=== PATIENT | male | born 1935 | race Caucasian/White ===

== ENCOUNTER 2019-11-06 05:32 | Outpatient (CLI) | payer MEDICARE, OTHER ==
[2019-11-06 16:35] LABS: Mean Corpuscular HGB CONC 31.9 g/dL (32.0-36.0); Mean Corpuscular Hemoglobin 26.9 pg (27.0-31.0); Mean Corpuscular Volume 84.3 fL (78.0-98.0); Mean Platelet Volume 8.6 fL (7.4-10.4); Platelet Count 201 thou/uL (130-400); RBC Distribution Width 15.6 % (11.5-14.5); Red Blood Cell (RBC) Count 4.08 mill/uL (4.70-6.10); White Blood Cell (WBC) Count 4.1 thou/uL (4.8-10.8)
[2019-11-06 16:55] LABS: Anion Gap 16 mmol/L (10-20); BUN (Urea Nitrogen) 22 mg/dL (8.4-25.7); Calc. Creatinine Clearance 0 mL/min (70-130); Calcium 8.5 mg/dL (7.8-10.44); Carbon Dioxide 21 mmol/L (23-31); Chloride 104 mmol/L (98-107); Estimated GFR-MDRD 54; Glucose 150 mg/dL (83-110); Potassium 4.5 mmol/L (3.5-5.1); Sodium 136 mmol/L (136-145)
[2019-11-07 14:42] LABS: SARS-CoV-2 MS2 Positive; SARS-CoV-2 N Gene Positive; SARS-CoV-2 S Gene Positive; SARS-CoV-2 by NAA DETECTED (NotDetected); SARS-CoV-2 orf1ab Positive
== END 2019-11-06 05:33 | disposition home or self-care (01) ==
LOC: LABBT 05:32
PROVIDERS: ATTEND Thoracic Surgery (Cardiothoracic Vascular Surgery)
DX: U07.1 COVID-19 (principal); Z01.812 Encounter for preprocedural laboratory examination; I25.10 Atherosclerotic heart disease of native coronary artery without angina pectoris
CPT/HCPCS: 80048; 85027; U0003; 87635

== ENCOUNTER 2019-12-25 15:35 | Inpatient (IN) | payer MEDICARE, OTHER ==
[2019-12-25 17:16] LABS: Troponin I 0.145 ng/mL (< 0.028)
[2019-12-25 17:27] LABS: Lactic Acid 0.8 mmol/L (0.5-2.2)
[2019-12-25 17:41] LABS: SARS-CoV-2 NAA Rapid Test Not Detected (NotDetected)
[2019-12-25] MEDS ORDERED: Dextrose 50% Abboject 50 ML SYRINGE SLOW IVP PRN (18:01)
[2019-12-25] MEDS ORDERED: Dextrose 5% in Water 1,000 ML IV PRN (18:01)
[2019-12-25] MEDS ORDERED: HumaLOG 300 UNITS/3 ML VIAL SC PRN (18:01)
[2019-12-25 20:08] VITALS: BMI 25.7
[2019-12-25] MEDS ORDERED: traMADol HCl 50 MG TAB PO PRN (20:41)
[2019-12-25] MEDS: Piperacillin/Tazobactam 4.5 GM in Sodium Chloride 0.9% 100 ML IVPB SCH (20:49)
[2019-12-25] MEDS: Sodium Chloride 0.9% 1,000 ML IV SCH (20:50)
[2019-12-25] MEDS ORDERED: Magnesium 2 GM/50 ML 2 GM in Premix Bag 1 BAG IVPB SCH (21:00)
[2019-12-25] MEDS: Rosuvastatin 10 MG TAB PO SCH (21:44)
[2019-12-25] MEDS: Finasteride 5 MG TAB PO SCH (21:45)
[2019-12-25] MEDS: Apixaban 5 MG TAB PO SCH (21:45)
[2019-12-25] MEDS: Propranolol HCl 20 MG TAB PO SCH (21:45)
--- NOTE | 2019-12-26 00:08 | PDOC.HHP ---
Hospitalist HPI - History of Present Illness Generalized weakness History of Present Illness: This is an 84-year-old male patient with a history of diabetes mellitus, hypothyroidism coronary artery disease status post CABG on 11/17/2019, also had a recent fall. He presents with generalized weakness this morning leading him to call EMS. He was sent to [facility] where he was assessed and noted to h ave possible sepsis with fever of 103.7. No obvious source has however been identified. He denied any urinary symptoms of dysuria frequency however his urinalysis from [place] was suggestive of UTI. Urine WBCs were however the slightly elevated between 7 and 10. He denied any chest pain cough or shortness of breath. Denied any diarrhea. Labs showed lactate of 0.8, troponin 0 0.145, slightly elevated from 0.118 at the outside facility. He received vancomycin and Zosyn and blood cultures as well as urine culture was taken. Of note after his recent discharge on 12/15/2019 post CABG he went for rehab. 3 days ago at the rehab facility he stumbled and fell and injured his face. He had a CT scan of his face head and neck which revealed no acute processes. CT scan of his C-spine revealed degenerative changes with mild and moderate for a number of stenosis at various levels. He has been wearing a collar ever since. He does not note any significant weakness in his upper or lower limbs. He however complains of worsening soreness of his neck. Although he does appear to have a history of A. 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 Hospitalist ROS - Review of Systems Constitutional: reports: fever, chills, weakness, malaise. denies: sweats Respiratory: denies: cough, shortness of breath, hemoptysis, SOB with excertion Gastrointestinal: denies: nausea, vomiting, abdominal pain, diarrhea, constipati on Musculoskeletal: reports: neck pain, shoulder pain Neurological: reports: weakness - Medication Medications: Active Medications Generic Name Dose Route Start Last Admin Trade Name Freq PRN Reason Stop Dose Admin Apixaban 5 mg 12/25/19 21:00 12/25/19 21:45 Apixaban 5 Mg Tab PO 5 mg BID GIULIA Administration Finasteride 5 mg 12/25/19 21:00 12/25/19 21:45 Finasteride 5 Mg Tab PO 5 mg BID GIULIA Administration Sodium Chloride 1,000 mls @ 75 mls/hr 12/25/19 18:00 12/25/19 20:50 Normal Saline 0.9% IV 1,000 mls .[id number] GIULIA Administration Piperacillin Sod/Tazobactam 100 mls @ 200 mls/hr 12/25/19 22:00 12/25/19 20:49 Sod 4.5 gm/ Sodium Chloride IVPB 100 mls Q8HR GIULIA Administration Propranolol HCl 20 mg 12/25/19 21:00 12/25/19 21:45 Propranolol Hcl 20 Mg Tab PO 20 mg BID GIULIA Administration Rosuvastatin Calcium 10 mg 12/25/19 21:00 12/25/19 21:44 Rosuvastatin 10 Mg Tab PO 10 mg BID GIULIA Administration Allergies: no known drug allergies Hospitalist History - Past Medical History Cardiac: reports: CAD Endocrine: reports: Diabetes - Exam General Appearance: awake alert Eye: PERRL, anicteric sclera ENT - other findings: Facial bruises Neck - other findings: Neck movement is restricted, kept in collar Heart - other findings: S1-S2 present and normal. No murmurs gallops or rubs. Sternotomy clean Respiratory - other findings: Entry adequate bilaterally Gastrointestinal - other findings: Soft, nontender, nondistended. Bowel sounds present. Neurological: cranial nerve grossly intact, no focal deficits Neurological - other findings: Significant bilateral arm tremors Psychiatric: A&O x 3 Hospitalist Results - Labs Result Diagrams: 12/26/19 04:21 12/26/19 04:21 Lab results: Lactic Acid 0.8 mmol/L (0.5-2.2) 12/25/19 16:20 Troponin I 0.145 ng/mL (< 0.028) H 12/25/19 16:20 Hospitalist H&P A/P - Plan Plan: This is an 84-year-old male patient with a history of diabetes mellitus, hypothyroidism, coronary disease status post recent CABG and also recent fall who presents with generalized weakness and fever. Sepsis Unclear source however had tachycardia above 90 and fever Urinalysis not impressive for likely source. Has superficial wounds on his face however unlikely. continue on vanc and zosyn for now follow up on cultures consider ID imput in am if necessary -Neck pain Secondary to fall Recent CT not revealing of acute process Will consult neurosurgery for reevaluation giving persistent neck pain and restricted movement -CAD s/p cabg continue asa, statin also on apixiban. will start for now cardiology to revie in am DM on correctiona insllin VTE-coninue apixiban Code status-full code
[2019-12-26] MEDS: Vancomycin HCl 750 MG in Sodium Chloride 0.9% 250 ML 250 ML IVPB SCH ×2 (03:19→15:55)
[2019-12-26] MEDS: Piperacillin/Tazobactam 4.5 GM in Sodium Chloride 0.9% 100 ML IVPB SCH ×2 (05:09→15:55)
[2019-12-26 05:29] LABS: #Eosinphils 0.4 thou/uL (0.0-0.7); #Lymphocytes 0.7 thou/uL (1.20-3.40); #Monocytes 0.6 thou/uL (0.11-0.59); #Neutrophils 6.4 thou/uL (1.40-6.50); %Basophils 0.4 % (0.0-1.0); %Eosinophils 4.5 % (0.0-10.0); %Lymphocytes 8.9 % (21.0-51.0); %Neutrophils 79.2 % (42.0-75.0); Hemoglobin 8.3 g/dL (14.0-18.0); Mean Corpuscular HGB CONC 31.8 g/dL (32.0-36.0); Mean Corpuscular Hemoglobin 27.4 pg (27.0-31.0); Mean Corpuscular Volume 86.2 fL (78.0-98.0); Mean Platelet Volume 7.2 fL (7.4-10.4); Platelet Count 250 thou/uL (130-400); Red Blood Cell (RBC) Count 3.02 mill/uL (4.70-6.10)
[2019-12-26 05:41] LABS: Anion Gap 16 mmol/L (10-20); BUN (Urea Nitrogen) 16 mg/dL (8.4-25.7); Calc. Creatinine Clearance 74 mL/min (70-130); Carbon Dioxide 20 mmol/L (23-31); Chloride 104 mmol/L (98-107); Estimated GFR-MDRD 83; Glucose 94 mg/dL (83-110); Sodium 136 mmol/L (136-145)
[2019-12-26] MEDS ORDERED: Levothyroxine Sodium 75 MCG TAB PO SCH (06:00)
[2019-12-26] MEDS: Sodium Chloride 0.9% 1,000 ML IV SCH (08:40)
[2019-12-26] MEDS: Propranolol HCl 20 MG TAB PO SCH (08:40)
[2019-12-26] MEDS: Rosuvastatin 10 MG TAB PO SCH (08:40)
[2019-12-26] MEDS: Apixaban 5 MG TAB PO SCH (08:40)
[2019-12-26] MEDS: Finasteride 5 MG TAB PO SCH (08:40)
[2019-12-26] MEDS ORDERED: Aspirin 81 mg Enteric Coated Tablet PO SCH (09:00)
[2019-12-26] MEDS ORDERED: Tamsulosin HCl 0.4 MG CAP PO SCH (09:00)
[2019-12-26] MEDS ORDERED: Acetaminophen 325 MG TAB PO PRN (10:44)
--- NOTE | 2019-12-26 11:06 | PDOC.HOSPP ---
- Subjective Encounter Date: 12/26/19 Encounter Time: 10:40 Subjective: f/u for generalized weakness, febrile episode and concern for sepsis of unclear source tx with Vanc/Zosyn. s/p recent CABG in 11/25 receiving inpt rehab with recent fall and facial contusions. - Objective Vital Signs & Weight: Vital Signs (12 hours) Temp Pulse Resp BP BP Pulse Ox 12/26/19 08:00 94 14 150/69 H 93 L 12/26/19 04:00 98.5 F 84 22 H 155/69 H 93 L Weight Weight 179 lb I&O: 12/25/19 12/26/19 12/27/19 06:59 06:59 06:59 Intake Total 1830 Output Total 1400 Balance 430 Result Diagrams: 12/26/19 04:21 12/26/19 04:21 Additional Labs: Accuchecks 12/25/19 21:10 POC Glucose 98 Hospitalist ROS - Medication Medications: Active Medications Generic Name Dose Route Start Last Admin Trade Name Freq PRN Reason Stop Dose Admin Apixaban 5 mg 12/25/19 21:00 12/26/19 08:40 Apixaban 5 Mg Tab PO 5 mg BID GIULIA Administration Aspirin 81 mg 12/26/19 09:00 12/26/19 08:40 Aspirin 81 Mg Enteric Coated Tablet PO 81 mg DAILY GIULIA Administration Finasteride 5 mg 12/25/19 21:00 12/26/19 08:40 Finasteride 5 Mg Tab PO 5 mg BID GIULIA Administration Sodium Chloride 1,000 mls @ 75 mls/hr 12/25/19 18:00 12/26/19 08:40 Normal Saline 0.9% IV Not Given .[id number] GIULIA Vancomycin HCl 750 mg/ Sodium 250 mls @ 250 mls/hr 12/26/19 03:00 12/26/19 03:19 Chloride IVPB 250 mls 0300,1500 GIULIA Administration Piperacillin Sod/Tazobactam 100 mls @ 200 mls/hr 12/25/19 22:00 12/26/19 05:09 Sod 4.5 gm/ Sodium Chloride IVPB 100 mls Q8HR GIULIA Administration Levothyroxine Sodium 75 mcg 12/26/19 06:00 12/26/19 05:09 Levothyroxine Sodium 75 Mcg Tab PO 75 mcg 0600 GIULIA Administration Propranolol HCl 20 mg 12/25/19 21:00 12/26/19 08:40 Propranolol Hcl 20 Mg Tab PO 20 mg BID GIULIA Administration Rosuvastatin Calcium 10 mg 12/25/19 21:00 12/26/19 08:40 Rosuvastatin 10 Mg Tab PO 10 mg BID GIULIA Administration Sodium Chloride 10 ml 12/26/19 09:00 12/26/19 08:41 Flush - Normal Saline 10 Ml Syringe IVF Not Given Q12HR GIULIA Tamsulosin HCl 0.4 mg 12/26/19 09:00 12/26/19 08:40 Tamsulosin Hcl 0.4 Mg Cap PO 0.4 mg DAILY GIULIA Administration
--- NOTE | 2019-12-26 11:27 | CON ---
DATE OF CONSULTATION: HISTORY OF PRESENT ILLNESS: The patient is an 84-year-old male with multiple medical comorbidities including diabetes, hypothyroidism, coronary artery disease, status post CABG on 11/17/2019. He has been at rehab following surgery and also had a recent fall at their facility, who returned and was admitted by Medicine for generalized weakness and possible underlying sepsis. He is currently being treated for urosepsis by the Medical Team. Following his fall at the rehab facility, he was evaluated with a noncontrast CT of the head and neck, which were negative for acute injuries. CT of the cervical spine is notable for multilevel degenerative changes and lordosis. He has been wearing a soft cervical collar p.r.n. for comfort. Neurosurgery was consulted for evaluation of his ongoing neck pain. PAST MEDICAL HISTORY: 1. Hypertension. 2. Coronary artery disease. 3. Diabetes. 4. Hypothyroidism. 5. Atrial fibrillation. 6. DVT. 7. Multiple TIAs. 8. BPH. PAST SURGICAL HISTORY: 1. Pacemaker. 2. CABG. 3. Inguinal hernia repair. 4. Tonsillectomy. REVIEW OF SYSTEMS: Per HPI. ALLERGIES: HE HAS NO KNOWN DRUG ALLERGIES. SOCIAL HISTORY: He is currently at rehab prior to readmission. He does not smoke, drink, or use any drugs. PHYSICAL EXAMINATION: VITAL SIGNS: He is 93% on room air, blood pressure is 150/69, heart rate is 94, temperature is 98.5. HEENT: Head; normocephalic, atraumatic. Eyes; PERRLA. Extraocular movements intact. ENT; pink, intact, moist. NECK: He currently is wearing a soft cervical collar. I removed this and palpated the posterior C-spine. He has some mild tenderness posteriorly and some pain with active rotation. PULMONARY: Symmetric chest expansion. No dyspnea. CARDIAC: Regular rate and rhythm. MUSCULOSKELETAL: Free active range of motion of all extremities. No focal motor weakness or reflex asymmetry. NEUROLOGIC: A and O x4. No focal neurologic deficits are appreciated. ASSESSMENT AND PLAN: This is an 84-year-old, who Neurosurgery has been asked to consult for increased neck pain after recent fall. His CT is negative for acute injury, but he is noted to have multilevel degenerative changes. His degenerative disease and pain likely exacerbated by his recent fall. He also has multiple medical comorbidities and is currently on blood thinners for his history of atrial fibrillation and recent CABG. He is not a surgical candidate and I would not recommend any additional imaging at this time. I think this will likely improve with a course of conservative treatment. He can continue to wear the cervical collar p.r.n. for comfort. I recommend course physical therapy when he returns back to rehab and I will also order this while he is here. Job ID: [id number] MTDD
--- NOTE | 2019-12-26 11:42 | PRG ---
DATE OF SERVICE: 12/26/2019 The patient had unremarkable night, has been afebrile. He has no new complaints today. His chest incision continues to look good. He has no new laboratory values, of note, with white count remaining fairly stable at about 8000, which is elevated for him. His hemoglobin has drifted slightly, perhaps related to hydration. Physical therapy has been ordered, which is a good start and he is on two antibiotics for his fever. Unfortunately, blood cultures were done, but urine cultures not available and that was his working diagnosis. Continue antibiotics, physical therapy, and await blood culture results. Job ID: [id number]
[2019-12-26 16:10] VITALS: BP 162/72; TEMP 98.2
--- NOTE | 2019-12-27 02:50 | DIS ---
DATE OF ADMISSION: 12/25/2019 DATE OF DISCHARGE: 12/26/2019 DISCHARGE DIAGNOSES: 1. Systemic inflammatory response syndrome, etiology unclear. 2. Neck strain, status post fall. 3. Facial contusions, status post fall. 4. Coronary artery disease, status post coronary artery bypass grafting x4 vessels, 11/17/2019. 5. Elevated troponin I, status post coronary artery bypass grafting. 6. Chronic normocytic anemia, stable. 7. Diabetes mellitus type 2. CONSULTATIONS: None. PERTINENT LABORATORY AND X-RAY FINDINGS: Creatinine ranged between 0.88 to 1.12. Troponin I ranged between 0.118 to 0.145. Lactic acid level 0.8. CBC showed a white blood cell count ranging between 8.0 to 10.1, hemoglobin ranged between 8.3 to 9.0. COVID-19 RNA PCR negative 12/25/2019. Blood cultures x2 dated 12/25/2019, showed no growth to date. Influenza A and B antigen 12/25/2019 negative. Portable chest x-ray dated 12/25/2019, showed no acute cardiopulmonary process. CT of the cervical spine dated 12/22/2019, showed degenerative changes of the cervical spine without acute process. CT of the brain without contrast dated 12/22/2019, showed no acute intracranial process. HOSPITAL COURSE: The patient was initially admitted after presenting status post fall after tripping over a curb. The patient underwent evaluation and was noted initially with a temperature of 103.7 degrees Fahrenheit and concern for potential sepsis syndrome. Workup was essentially unrevealing and blood cultures remain negative as stated previously. The patient received broad-spectrum IV antibiotic therapy with Zosyn and vancomycin pending culture results. The patient clinically stabilized in less than 24 hours and remained afebrile throughout the hospital course. The patient was evaluated by the Neurosurgical Service after recent fall approximately 3 days prior to this evaluation, sustaining a neck strain. CT imaging of the cervical spine did not reveal any acute process and no acute surgical intervention was recommended. Overall, the patient did remain clinically stable during the hospital course. I have examined the patient at the time of discharge and discussed followup instructions. The patient verbalizes understanding and agreement, ready for discharge on 12/26/2019. DISCHARGE MEDICATIONS: 1. Levaquin 500 mg p.o. daily x5 days. 2. Crestor 10 mg p.o. b.i.d. 3. Enteric-coated aspirin 81 mg p.o. daily. 4. Metformin 500 mg p.o. b.i.d. 5. Primidone 200 mg p.o. b.i.d. 6. Propranolol 20 mg p.o. b.i.d. 7. Proscar 5 mg p.o. b.i.d. 8. Levothyroxine 75 mcg p.o. daily. 9. Eliquis 5 mg p.o. b.i.d. 10. Flomax 0.4 mg p.o. daily. 11. Tramadol 50 mg p.o. q.6 hours p.r.n. FOLLOWUP: The patient may follow up with his primary care provider, Dr. Oscar Morales. CONDITION ON DISCHARGE: Stable. ACTIVITY: Ad-franco. SPECIAL INSTRUCTIONS: Continue outpatient cardiac rehabilitation. DIET: ADA and heart healthy. CODE STATUS: Full. DISPOSITION: To home 12/26/2019. TIME SPENT: Total time preparing and coordinating discharge is 32 minutes. Job ID: [id number]
--- NOTE | 2019-12-29 13:43 | PDOC.EVN ---
Event Note - Event Note Event Note: Mr. Dave had a rapid clinical recovery which has allowed him to discharge early.
== END 2019-12-26 15:20 | disposition home or self-care (01) | DRG 552 ==
LOC: ERS 15:35 → 2NO 16:25
PROVIDERS: ADMIT Student in an Organized Health Care Education/Training Program; ATTEND Student in an Organized Health Care Education/Training Program
PROC: 8E0ZXY6 Isolation (ICD-10-PCS; principal; 2019-12-25)
DX: S16.1XXA Strain of muscle, fascia and tendon at neck level, initial encounter (principal); R65.10 Systemic inflammatory response syndrome (SIRS) of non-infectious origin without acute organ dysfunction; Z20.828 Contact with and (suspected) exposure to other viral communicable diseases; S00.83XA Contusion of other part of head, initial encounter; W01.0XXA Fall on same level from slipping, tripping and stumbling without subsequent striking against object, initial encounter; I25.10 Atherosclerotic heart disease of native coronary artery without angina pectoris; R79.89 Other specified abnormal findings of blood chemistry; D64.9 Anemia, unspecified; E11.9 Type 2 diabetes mellitus without complications; N40.0 Benign prostatic hyperplasia without lower urinary tract symptoms; E03.9 Hypothyroidism, unspecified; Z95.1 Presence of aortocoronary bypass graft; Z79.899 Other long term (current) drug therapy; Z95.0 Presence of cardiac pacemaker; Z79.84 Long term (current) use of oral hypoglycemic drugs; Z79.01 Long term (current) use of anticoagulants; Z79.82 Long term (current) use of aspirin; Z79.890 Hormone replacement therapy; Z86.718 Personal history of other venous thrombosis and embolism
CPT/HCPCS: 36415; 36416; 80048; 83605; 85025; 99285; J2543; J3370; J3475; J3490; J7050; U0002

== ENCOUNTER 2021-07-12 14:03 | Emergency (ER) | payer MEDICARE, OTHER ==
[2021-07-12 14:31] LABS: #Eosinphils 0.6 thou/uL (0.0-0.7); #Monocytes 0.5 thou/uL (0.11-0.59); %Basophils 0.7 % (0.0-1.0); %Eosinophils 10.9 % (0.0-10.0); %Lymphocytes 19.9 % (21.0-51.0); %Monocytes 9.8 % (0.0-10.0); %Neutrophils 58.7 % (42.0-75.0); Hemoglobin 10.7 g/dL (14.0-18.0); Mean Corpuscular HGB CONC 32.9 g/dL (32.0-36.0); Mean Corpuscular Hemoglobin 31.4 pg (27.0-31.0); Mean Corpuscular Volume 95.3 fL (78.0-98.0); Mean Platelet Volume 6.3 fL (7.4-10.4); Platelet Count 263 thou/uL (130-400); RBC Distribution Width 12.9 % (11.5-14.5); Red Blood Cell (RBC) Count 3.42 mill/uL (4.70-6.10); White Blood Cell (WBC) Count 5.2 thou/uL (4.8-10.8)
[2021-07-12 14:59] LABS: ALT (SGPT) 17 U/L (8-55); AST (SGOT) 32 U/L (5-34); Albumin 3.6 g/dL (3.4-4.8); Alkaline Phosphatase 116 U/L (40-110); Anion Gap 15 mmol/L (10-20); BUN (Urea Nitrogen) 23 mg/dL (8.4-25.7); Bilirubin, Total 0.2 mg/dL (0.2-1.2); Calc. Creatinine Clearance 0 mL/min (70-130); Calcium 8.3 mg/dL (7.8-10.44); Carbon Dioxide 20 mmol/L (23-31); Chloride 109 mmol/L (98-107); Globulin 3.6 g/dL (2.4-3.5); Glucose 146 mg/dL (83-110); Potassium 5.5 mmol/L (3.5-5.1); Protein, Total 7.2 g/dL (5.8-8.1); Sodium 138 mmol/L (136-145)
[2021-07-12 17:27] LABS: Troponin I Less than 0.010 ng/mL (< 0.028)
== END 2021-07-12 17:44 | disposition home or self-care (01) ==
LOC: ERS 14:03
DX: R07.9 Chest pain, unspecified (principal); K44.9 Diaphragmatic hernia without obstruction or gangrene; I49.9 Cardiac arrhythmia, unspecified; I10 Essential (primary) hypertension; E03.9 Hypothyroidism, unspecified; E11.9 Type 2 diabetes mellitus without complications; Z85.828 Personal history of other malignant neoplasm of skin
CPT/HCPCS: 36416; 71045; 83880; 84484; 85025; 93005

== ENCOUNTER 2021-09-29 11:55 | Outpatient (CLI) | payer MEDICARE, OTHER | END 2021-09-29 11:56 | disposition home or self-care (01) | LOC: BICRAD 11:55 | PROVIDERS: ATTEND Internal Medicine Hematology & Oncology | DX: C90.00 Multiple myeloma not having achieved remission (principal); D47.2 Monoclonal gammopathy | CPT/HCPCS: 77075 ==